=== PATIENT | male | born 1945 | race Two or more races ===

== ENCOUNTER 2018-12-28 21:39 | Inpatient (IN) | payer OTHER | END 2018-12-29 23:55 | disposition short-term general hospital (02) | LOC: OVERFLOW 21:40 → EAST 12-29 04:29 → ER 21:39 | DX: M25.551 Pain in right hip (principal); S32.401A Unspecified fracture of right acetabulum, initial encounter for closed fracture; S00.03XA Contusion of scalp, initial encounter; S16.1XXA Strain of muscle, fascia and tendon at neck level, initial encounter ==